=== PATIENT | female | born 1990 ===

== ENCOUNTER 2017-05-13 23:32 | Emergency (ER) | payer OTHER ==
[2017-05-13 23:41] VITALS: TEMP 97.6
[2017-05-14 00:06] VITALS: BP 125/87; PULSE 87; RESP 16; O2SAT 99
[2017-05-14] MEDS ORDERED: IBUPROFEN 600 MG TAB PO ONE (00:21)
[2017-05-14] MEDS ORDERED: IBUPROFEN 600 MG TAB ONE (00:24)
== END 2017-05-14 00:26 | disposition home or self-care (01) ==
LOC: ED 23:32
DX: S60.222A Contusion of left hand, initial encounter (principal); W51.XXXA Accidental striking against or bumped into by another person, initial encounter
CPT/HCPCS: 73130; 99282; 99283